=== PATIENT | male | born 1990 | race Caucasian/White ===

== ENCOUNTER 2019-09-12 02:00 | Emergency (ER) | payer SELFPAY ==
[~2019-09-12] VITALS: Ht 172.7 cm; Wt 105.2 kg
[~2019-09-12 02:00] MED LIST: METH4TAB PO; SULF1TAB35 PO
[2019-09-12 02:30] VITALS: BP 110/64
[2019-09-12 02:38] LABS: BASOPHILS % (AUTO) 1 % (0-10); EOSINOPHILS # (AUTO) 0.4 10^3/uL (0.0-0.3); EOSINOPHILS % (AUTO) 6 % (0-10); HEMATOCRIT 42 % (40-54); HEMOGLOBIN 14.8 G/DL (13.3-17.7); LYMPHOCYTES # (AUTO) 2.2 X 10^3 (1.0-4.0); LYMPHOCYTES % (AUTO) 32 % (12-44); MEAN CORPUSCULAR HEMOGLOBIN 32 PG (25-34); MEAN CORPUSCULAR HGB CONC 35 G/DL (32-36); MEAN CORPUSCULAR VOLUME 91 FL (80-99); MEAN PLATELET VOLUME 9.8 FL (7.4-10.4); MONOCYTES # (AUTO) 0.9 X 10^3 (0.0-1.0); MONOCYTES % (AUTO) 13 % (0-12); NEUTROPHILS # (AUTO) 3.2 X 10^3 (1.8-7.8); NEUTROPHILS % (AUTO) 48 % (42-75); PLATELET COUNT 218 10^3/uL (130-400); RED CELL DISTRIBUTION WIDTH 13.2 % (10.0-14.5); WHITE BLOOD COUNT 6.7 10^3/uL (4.3-11.0)
--- NOTE | 2019-09-12 02:42 | ED Cough/URI ---
General Chief Complaint: Cough/Cold/Flu Symptoms Stated Complaint: SOB,FEVER Nursing Triage Note: c/o sore throat, cough, intermittant fever x3 days. Sepsis Screen: No Definite Risk Source: patient History of Present Illness Date Seen by Provider: Sep 12, 2019 Time Seen by Provider: 02:13 Initial Comments PT ARRIVES VIA POV FROM HOME STATES HE HAS BEEN SICK FOR 3 DAYS STARTED OUT WITH SORE THROAT AND FEVER OF 102.3 HAS HAD NON-PRODUCTIVE COUGH AND HAS HAD A HARD TIME BREATHING FOR THE LAST 3 DAYS STATES HE HAS "BEEN HAVING A LITTLE WHEEZING WHEN I DON'T TAKE THE DAYQUIL, HAS ALSO BEEN TAKING NYQUIL HAS NOT TAKEN ANY TYLENOL OR MOTRIN FOR SYMPTOMS PT HAS HAD BRONCHITIS A COUPLE OF TIMES AND HAD PNEUMONIA ONCE, ABOUT 5 YEARS AGO DOES NOT HAVE ANY OTHER RESPIRATORY PROBLEMS PT SMOKED FOR ABOUT 2 YEARS, QUIT 2012 NO KNOWN SICK CONTACTS OR KNOWN EXPOSURE TO COVID-19, NO RECENT TRAVEL. PT WORKS AT [employer] IN [place], [place] Allergies and Home Medications Allergies Coded Allergies: No Known Drug Allergies (Unverified , 07/22/15) Home Medications Azithromycin 500 Mg Tablet, 500 MG PO DAILY Prescribed by: SARAH ROCHA on 09/12/19327 Benzonatate 100 Mg Capsule, 100 MG PO TID Prescribed by: SARAH ROCHA on 09/12/19327 Guaifenesin/Dextromethorphan 1 Each Tbmp.12hr, 1 EACH PO BID Prescribed by: SARAH ROCHA on 09/12/19327 Ondansetron 4 Mg Tab.rapdis, 4 MG PO Q4H Prescribed by: SARAH ROCHA on 09/12/19327 Patient Home Medication List Home Medication List Reviewed: Yes Review of Systems Review of Systems Constitutional: see HPI, fever, malaise EENTM: see HPI, throat pain Respiratory: see HPI, cough, short of breath, wheezing Cardiovascular: no symptoms reported Gastrointestinal: no symptoms reported Genitourinary: no symptoms reported Musculoskeletal: no symptoms reported Skin: no symptoms reported Psychiatric/Neurological: No Symptoms Reported Hematologic/Lymphatic: No Symptoms Reported Immunological/Allergic: no symptoms reported Past Ahcdbmn-Sccojx-Lofgqy Hx Past Med/Social Hx: Reviewed and Corrections made Patient Social History Alcohol Use: Denies Use Recreational Drug Use: No Smoking Status: Former Smoker (QUIT 2012) Type Used: Cigarettes 2nd Hand Smoke Exposure: Yes Recent Foreign Travel: No Contact w/Someone Who Travel: No Recent Infectious Disease Expo: No Recent Hopitalizations: No Physical Abuse: No Sexual Abuse: No Mistreated: No Fear: No Immunizations Up To Date Tetanus Booster (TDap): More than 5yrs Seasonal Allergies Seasonal Allergies: No Past Medical History Surgeries: Yes (BMT'S) Ear Surgery Respiratory: No Cardiac: No Neurological: No HIV/AIDS: No Genitourinary: No Gastrointestinal: No Musculoskeletal: No Endocrine: No HEENT: Yes Chronic Ear Infection Cancer: No Psychosocial: No Integumentary: No Blood Disorders: No Physical Exam Vital Signs - First Documented 09/12/19 02:08 Temp 36.8 Pulse 86 Resp 18 B/P (MAP) 130/76 (94) Pulse Ox 99 O2 Delivery Room Air Capillary Refill : Less Than 3 Seconds Height: 5'8" Weight: 170lbs. oz. 77.838421mc; 35.00 BMI Method:Estimated General Appearance: WD/WN, no apparent distress, other (OCCASIONAL DRY COUGH. ) HEENT: PERRL/EOMI; No photophobia; pharyngeal erythema (VERY SLIGHT ERYTHEMA); No tonsillar exudate; other (TM'S OBSCURED BY CERUMEN) Neck: non-tender, full range of motion, supple, normal inspection; No lymphadenopathy (R), No lymphadenopathy (L) Respiratory: normal breath sounds, no respiratory distress, no accessory muscle use; No rales, No rhonchi, No stridor, No wheezing Cardiovascular: regular rate, rhythm, no murmur Gastrointestinal: non tender, soft Extremities: normal inspection Neurologic/Psychiatric: supervisor dock II-XII nml as tested, no motor/sensory deficits, alert, normal mood/affect, oriented x 3 Skin: normal color, warm/dry Progress/Results/Core Measures Suspected Sepsis Recent Fever Within 48 Hours: Yes Infection Criteria Present: Suspected New Infection New/Unexplained Altered Menta: No Sepsis Screen: No Definite Risk SIRS Temperature: Pulse: 86 Respiratory Rate: 18 Laboratory Tests 09/12/19 02:20: White Blood Count 6.7 Blood Pressure 130 /76 Mean: 94 Laboratory Tests 09/12/19 02:20: Creatinine 1.00, Platelet Count 218, Total Bilirubin 0.4 Results/Orders Lab Results Laboratory Tests Test 09/12/19 02:20 Range/Units White Blood Count 6.7 4.3-11.0 10^3/uL Red Blood Count 4.64 4.35-5.85 10^6/uL Hemoglobin 14.8 13.3-17.7 G/DL Hematocrit 42 40-54 % Mean Corpuscular Volume 91 80-99 FL Mean Corpuscular Hemoglobin 32 25-34 PG Mean Corpuscular Hemoglobin Concent 35 32-36 G/DL Red Cell Distribution Width 13.2 10.0-14.5 % Platelet Count 218 130-400 10^3/uL Mean Platelet Volume 9.8 7.4-10.4 FL Neutrophils (%) (Auto) 48 42-75 % Lymphocytes (%) (Auto) 32 12-44 % Monocytes (%) (Auto) 13 H 0-12 % Eosinophils (%) (Auto) 6 0-10 % Basophils (%) (Auto) 1 0-10 % Neutrophils # (Auto) 3.2 1.8-7.8 X 10^3 Lymphocytes # (Auto) 2.2 1.0-4.0 X 10^3 Monocytes # (Auto) 0.9 0.0-1.0 X 10^3 Eosinophils # (Auto) 0.4 H 0.0-0.3 10^3/uL Basophils # (Auto) 0.0 0.0-0.1 10^3/uL Sodium Level 143 135-145 MMOL/L Potassium Level 3.7 3.6-5.0 MMOL/L Chloride Level 108 H 98-107 MMOL/L Carbon Dioxide Level 23 21-32 MMOL/L Anion Gap 12 5-14 MMOL/L Blood Urea Nitrogen 12 7-18 MG/DL Creatinine 1.00 0.60-1.30 MG/DL Estimat Glomerular Filtration Rate > 60 BUN/Creatinine Ratio 12 Glucose Level 106 H 70-105 MG/DL Calcium Level 9.0 8.5-10.1 MG/DL Corrected Calcium 8.8 8.5-10.1 MG/DL Total Bilirubin 0.4 0.1-1.0 MG/DL Aspartate Amino Transf (AST/SGOT) 34 5-34 U/L Alanine Aminotransferase (ALT/SGPT) 38 0-55 U/L Alkaline Phosphatase 70 40-136 U/L Lactate Dehydrogenase 231 H 125-220 U/L C-Reactive Protein High Sensitivity 2.67 H 0.00-0.50 MG/DL Total Protein 7.1 6.4-8.2 GM/DL Albumin 4.2 3.2-4.5 GM/DL Monoscreen NEGATIVE NEGATIVE Group A Streptococcus Screen NEGATIVE NEGATIVE Micro Results Microbiology 09/12/19 Influenza Types A,B Antigen (STEPH) - Final, Complete My Orders Orders - SARAH ROCHA DO Ed Iv/Invasive Line Start (09/12/19 02:12) Monitor-Rhythm Ecg Trace Only (09/12/19 02:12) Chest 1 View, Ap/Pa Only (09/12/19 02:12) Cbc With Automated Diff (09/12/19 02:12) Comprehensive Metabolic Panel (09/12/19 02:12) Hs C Reactive Protein (09/12/19 02:12) Monotest (09/12/19 02:12) Rapid Strep A Screen (09/12/19 02:12) Influenza A And B Antigens (09/12/19 02:12) LDH (09/12/19 02:12) Coronavirus Sars-Cov-2 So 2018 (09/12/19 02:12) Adenovirus Detection By Pcr (09/12/19 02:12) Parainfluenza Virus 1,2,3 Pcr (09/12/19 02:12) Ondansetron Injection (Zofran Injectio (09/12/19 03:30) Azithromycin Tablet (Zithromax Tablet) (09/12/19 03:30) Rx-Ondansetron Po (Rx-Zofran Po) (09/12/19 03:35) Rx-Ondansetron Po (Rx-Zofran Po) (09/12/19 03:28) Azithromycin Tablet (Zithromax Tablet) (09/12/19 03:20) Medications Given in ED Current Medications Medications Dose Ordered Sig/Ti Route Start Time Stop Time Status Last Admin Dose Admin Azithromycin 500 mg ONCE ONCE PO 09/12/19 03:30 09/12/19 03:46 DC 09/12/19 03:27 500 MG Ondansetron HCl 4 mg ONCE ONCE IVP 09/12/19 03:30 09/12/19 03:31 DC 09/12/19 03:26 4 MG Vital Signs/I&O 09/12/19 09/12/19 09/12/1919/20 02:08 02:08 02:30 03:00 Temp 36.8 Pulse 86 93 102 Resp 18 18 18 B/P (MAP) 130/76 (94) 110/64 (79) 121/67 (85) Pulse Ox 99 99 99 O2 Delivery Room Air Room Air Room Air Room Air 09/12/19 09/12/19 03:30 03:45 Temp 36.7 Pulse 89 84 Resp 16 16 B/P (MAP) 127/80 (96) 122/79 (96) Pulse Ox 100 99 O2 Delivery Room Air Room Air Capillary Refill : Less Than 3 Seconds Blood Pressure Mean: 94 Progress Note : Progress Note PT SEEN IN COVID UNIT. PPE WORN AT ALL TIMES. COVID TESTING DONE THROUGHOUT STAY, PT'S MAIN COMPLAINT WAS HIS SORE THROAT--STATES "I CAN'T BREATHE BECAUSE IT HURTS" --PT IS SHOWING NO SIGNS OF ANY RESPIRATORY DIFFICULTY, NO STRIDOR, NO WHEEZING, RESPIRATIONS EVEN AND UNLABORED AND NORMAL RATE, WITH O2 SATS 97-100% ON ROOM AIR ALL VITALS STABLE NO FEVER DURING STAY 0245--PT NOW ADMITS THAT HE WENT TO [facility] ER 3 DAYS AGO WHEN SYMPTOMS BEGAN AND HE WAS TESTED FOR COVID AT THAT TIME ALSO. DOES NOT KNOW RESULTS OF THAT TEST. STATES "THEY DIDN'T DO ANYTHING FOR HIM" --NO RX'S PT WAS ADVISED ON IMPORTANCE OF SELF QUARANTINE HIMSELF AND ALL FAMILY MEMBERS FOR THE NEXT 2 WEEKS, OR UNTIL CLEARED BY HEALTH DEPT. Departure Impression Primary Impression: Upper respiratory infection Additional Impressions: Sore throat COFD P.U.I. Disposition: 01 HOME, SELF-CARE Condition: Stable Departure-Patient Inst. Referrals: NO,LOCAL PHYSICIAN (PCP/Family) Primary Care Physician Patient Instructions: Coronavirus Disease 2019 (COVID-19) (DC), Cough, Runny Nose, and the Common Cold (DC), Sore Throat, Adult (DC), Viral Upper Respiratory Infection, Adult (DC) Add. Discharge Instructions: LOTS OF CLEAR LIQUIDS--WATER, BROTH, JELLO, GATORADE TYLENOL NEEDED FOR PAIN OR FEVER OVER 101 OVER THE COUNTER CEPACOL LOZENGES OR THROAT SPRAY FOR THROAT PAIN SELF-QUARANTINE YOURSELF AND ALL HOUSEHOLD MEMBERS FOR THE NEXT 2 WEEKS, UNTIL CLEARED BY HEALTH DEPT. FOLLOW UP WITH DR OF CHOICE IN 4-5 DAYS IF NO BETTER All discharge instructions reviewed with patient and/or family. Voiced understanding. Scripts Guaifenesin/Dextromethorphan (Mucinex Dm ER 1,200-60 mg Tab) 1 Each Tbmp.12hr 1 EACH PO BID, #20 EA Prov: SARAH ROCHA DO 09/12/19 Benzonatate (TESSALON PERLES) 100 Mg Capsule 100 MG PO TID, #30 CAP Prov: SARAH ROCHA DO 09/12/19 Ondansetron (Ondansetron Odt) 4 Mg Tab.rapdis 4 MG PO Q4H for Nausea/Vomiting, #10 TAB Prov: SARAH ROCHA DO 09/12/19 Azithromycin (Zithromax) 500 Mg Tablet 500 MG PO DAILY for 5 Days, #5 TAB Prov: SARAH ROCHA DO 09/12/19 Work/School Note: Local Medical Staff Listing, Work Release Form Date Seen in the Emergency Department: Sep 12, 2019 Return to Work: September 26, 2019 SARAH ROCHA DO Sep 12, 2019 02:42
[2019-09-12 02:49] LABS: ALBUMIN 4.2 GM/DL (3.2-4.5); CHLORIDE 108 MMOL/L (98-107); POTASSIUM 3.7 MMOL/L (3.6-5.0); SODIUM 143 MMOL/L (135-145)
[2019-09-12 02:51] LABS: GLUCOSE 106 MG/DL (70-105)
[2019-09-12 02:52] LABS: TOTAL PROTEIN 7.1 GM/DL (6.4-8.2)
[2019-09-12 02:53] LABS: BILIRUBIN,TOTAL 0.4 MG/DL (0.1-1.0); CARBON DIOXIDE 23 MMOL/L (21-32)
[2019-09-12 02:55] LABS: ALKALINE PHOSPHATASE 70 U/L (40-136); GFR ESTIMATED > 60
[2019-09-12 02:56] LABS: BUN/CREATININE RATIO 12
[2019-09-12 02:58] LABS: ALANINE AMINOTRANSFERASE 38 U/L (0-55)
[2019-09-12 03:00] VITALS: BP 121/67
[2019-09-12] MEDS ORDERED: AZITHROMYCIN 250 MG TAB (ZITHROMAX) PO ONE ×2 (03:20→03:30)
[2019-09-12] MEDS ORDERED: RX-ONDANSETRON 4 MG ODT (ZOFRAN) PPK #4 ONE (03:28)
[2019-09-12] MEDS ORDERED: ONDA4TAB11 PO (03:28)
[2019-09-12] MEDS ORDERED: BENZ100C18 PO (03:28)
[2019-09-12] MEDS ORDERED: AZIT500T PO (03:28)
[2019-09-12] MEDS ORDERED: GUAI1TBM19 PO (03:28)
[2019-09-12 03:30] VITALS: BP 127/80
[2019-09-12] MEDS ORDERED: ONDANSETRON 4 MG/2 ML (SDV) Z0FRAN IVP ONE (03:30)
[2019-09-12] MEDS ORDERED: RX-ONDANSETRON 4 MG ODT (ZOFRAN) PPK #4 PO STA (03:35)
[2019-09-12 03:45] VITALS: BP 122/79
--- NOTE | 2019-09-12 08:19 | Diagnostic Imaging Report ---
INDICATION: Shortness of air. Time of exam 2:38 AM No prior studies are available for comparison. The heart size is normal. The pulmonary vascularity is unremarkable. The lungs are clear. No infiltrate, effusion or pneumothorax is detected. Impression: No acute cardiopulmonary process is detected. Dictated by: Dictated on workstation # [id number]
[2019-09-13 16:20] LABS: PARAINFLU 1 PCR Not Detected (Not Detected); PARAINFLU 2 PCR Not Detected (Not Detected)
== END 2019-09-12 03:46 | disposition home or self-care (01) ==
LOC: EDUNIT# 02:00 → ER 02:01
DX: J06.9 Acute upper respiratory infection, unspecified (principal)
CPT/HCPCS: 36415; 71045; 80053; 83615; 85025; 86141; 86308; 87430; 87631; 87635; 87798; 87804

== ENCOUNTER 2021-02-22 13:29 | Emergency (ER) | payer SELFPAY ==
[~2021-02-22] VITALS: Ht 175.2 cm; Wt 93.7 kg
[~2021-02-22 13:29] MED LIST changes: +AZIT500T PO; +BENZ100C18 PO; +GUAI1TBM19 PO; +ONDA4TAB11 PO; -SULF1TAB35 PO; +SULF1TAB38 PO
[2021-02-22] MEDS ORDERED: PROCHLORPERAZINE 10 MG/2ML INJ (COMPAZINE) IV ONE (14:00)
[2021-02-22] MEDS ORDERED: diphenhydrAMINE 50 MG/ML INJ (BENADRYL) INJ ONE (14:00)
[2021-02-22] MEDS ORDERED: LACTATED RINGERS 1,000 ML IV SCH (14:00)
[2021-02-22] MEDS ORDERED: KETOROLAC 30 MG/ML VIAL IVP ONE (14:00)
--- NOTE | 2021-02-22 14:03 | Diagnostic Imaging Report ---
PROCEDURE: CT head without contrast. TECHNIQUE: Multiple contiguous axial images were obtained through the brain without the use of intravenous contrast. Auto Exposure Controls were utilized during the CT exam to meet ALARA standards for radiation dose reduction. INDICATION: Worsening headache x5 days. No known injuries. EXAMINATION: CT brain without contrast 02/22/2021. COMPARISON: 07/22/2015 FINDINGS: Multiple axial images of the brain without contrast. There is no evidence for acute hemorrhage or infarct. There is no mass, mass effect, midline shift or hydrocephalus. The paranasal sinuses and mastoid air cells demonstrate no acute abnormality. IMPRESSION: No acute intracranial process. Dictated by: Dictated on workstation # [id number]
--- NOTE | 2021-02-22 14:11 | ED Headache ---
General Chief Complaint: Head/Cervical Problems Stated Complaint: HEADACHE Source: patient Exam Limitations: no limitations History of Present Illness Date Seen by Provider: Feb 22, 2021 Time Seen by Provider: 13:39 Initial Comments 30-year-old male with no significant past medical history coming in due to a headache. Headache came on slowly on Friday which was roughly 5 days ago. It is more in the quaker region, is throbbing, now severe. It was slow in onset, and not thunderclap. Denies any fever or neck stiffness. No weakness, numbness, or any other concerns with it. He gets maybe 2 headaches a year, but does not really go to the doctor and has never seen anyone for headaches. This 1 definitely feels worse than usual. Has tried Tylenol and ibuprofen which took the edge off yesterday but never really fully gotten better. Has some photosensitivity and potentially blurry vision today but no other concerns. Denies any other infectious symptoms including cough, fever, shortness of breath, nausea, vomiting, diarrhea, rash, or any other concerns. Allergies and Home Medications Allergies Coded Allergies: No Known Drug Allergies (Unverified , 07/22/15) Patient Home Medication List Home Medication List Reviewed: Yes Azithromycin (Zithromax) 500 Mg Tablet, 500 MG PO DAILY Prescribed by: SARAH ROCHA on 09/12/19327 Benzonatate (Tessalon Perles) 100 Mg Capsule, 100 MG PO TID Prescribed by: SARAH ROCHA on 09/12/19327 Guaifenesin/Dextromethorphan (Mucinex Dm ER 1,200-60 mg Tab) 1 Each Tbmp.12hr, 1 EACH PO BID Prescribed by: SARAH ROCHA on 09/12/19327 Ondansetron (Ondansetron Odt) 4 Mg Tab.rapdis, 4 MG PO Q4H Prescribed by: SARAH ROCHA on 09/12/19327 Review of Systems Review of Systems Constitutional: No chills, No fever Eyes: Blurred Vision Ears, Nose, Mouth, Throat: denies throat pain Respiratory: No cough, No short of breath Cardiovascular: No chest pain, No palpitations Gastrointestinal: No abdominal pain, No constipation, No diarrhea, No nausea, No vomiting Genitourinary: No dysuria Musculoskeletal: No back pain Skin: No rash Psychiatric/Neurological: No Symptoms Reported All Other Systems Reviewed Negative Unless Noted: Yes Past Kgwroun-Onbttf-Pnoryj Hx Patient Social History Tobacco Use?: No Immunizations Up To Date Tetanus Booster (TDap): More than 5yrs Seasonal Allergies Seasonal Allergies: No Past Medical History Surgeries: Yes (BMT'S) Ear Surgery Respiratory: No Cardiac: No Neurological: No HIV/AIDS: No Genitourinary: No Gastrointestinal: No Musculoskeletal: No Endocrine: No HEENT: Yes Chronic Ear Infection Cancer: No Psychosocial: No Integumentary: No Blood Disorders: No Physical Exam Vital Signs Vital Signs - First Documented 02/22/21 13:35 Temp 36.4 Pulse 86 Resp 20 B/P (MAP) 140/73 (95) Pulse Ox 98 O2 Delivery Room Air Capillary Refill : Height, Weight, BMI Height: 5'8" Weight: 170lbs. oz. 77.899222fc; 35.00 BMI Method:Estimated General Appearance: WD/WN, no apparent distress HEENT: PERRL/EOMI, normal ENT inspection, TMs normal, pharynx normal Neck: non-tender, full range of motion, supple, normal inspection, other (No meningismus, negative shake test) Cardiovascular: regular rate, rhythm, no edema, no murmur Respiratory: chest non-tender, lungs clear, normal breath sounds, no respiratory distress, no accessory muscle use Gastrointestinal: normal bowel sounds, non tender, soft; No distended, No guarding, No rebound Back: normal inspection, no CVA tenderness Extremities: normal range of motion, non-tender, normal inspection, no pedal edema, no calf tenderness, normal capillary refill Psychiatric: alert, oriented x 3, depressed affect Crainal Nerves: normal hearing, normal speech, PERRL Coordination/Gait: normal finger to nose, normal gait, negative Romberg's sign Motor/Sensory: no motor deficit, no sensory deficit, no pronator drift Skin: normal color, warm/dry Lymphatic: no adenopathy Progress/Results/Core Measures Results/Orders My Orders Orders - DOLORES MONREAL MD Ct Head Wo (02/22/21 13:47) Prochlorperazine Injection (Compazine In (02/22/21 14:00) Diphenhydramine Injection (Benadryl Inje (02/22/21 14:00) Lactated Ringers (Lr 1000 Ml Iv Solution (02/22/21 14:00) Ketorolac Injection (Toradol Injection) (02/22/21 14:00) Medications Given in ED Current Medications Medications Dose Ordered Sig/Ti Route Start Time Stop Time Status Last Admin Dose Admin Diphenhydramine HCl 25 mg ONCE ONCE INJ 02/22/21 14:00 02/22/21 14:01 DC 02/22/21 14:02 25 MG Ketorolac Tromethamine 15 mg ONCE ONCE IVP 02/22/21 14:00 02/22/21 14:01 DC 02/22/21 14:02 15 MG Prochlorperazine Edisylate 10 mg ONCE ONCE IV 02/22/21 14:00 02/22/21 14:01 DC 02/22/21 14:02 10 MG Vital Signs/I&O 02/22/21 13:35 Temp 36.4 Pulse 86 Resp 20 B/P (MAP) 140/73 (95) Pulse Ox 98 O2 Delivery Room Air Progress Progress Note : Progress Note 30-year-old male with above history coming in due to headache. ABCs were intact and vitals were stable on presentation. Specifically, he is afebrile, has no meningismus, is well-appearing otherwise and I have very low concern for meningitis. Do not believe a lumbar puncture would be helpful for him. The headache was not acute in onset, and came on slowly and does not fit clinically with a subarachnoid hemorrhage. He does not have any focal neurologic signs that would point to a lesion in his brain, however it is unusual for him to get a headache this bad. CT had ordered and on my interpretation without any bleeding or large mass with mass-effect. An IV was placed and he was given a bolus of IV fluids as well as a headache cocktail. He improved and on reassessment continues to look well. I believe this is more likely a benign headache. He was then discharged home in stable condition with strict return precautions. Diagnostic Imaging Diagonstic Imaging: CT Plain Films/CT/US/NM/MRI: head Comments [facility], [place] NAME: MARJORIE MADRID [facility] REC#: [id number] PT STATUS: REG ER : 1990 PHYSICIAN: DOLORES MONREAL MD ADMIT DATE: 02/22/21/ER FS Signed Date of Exam:02/22/21 CT HEAD WO PROCEDURE: CT head without contrast. TECHNIQUE: Multiple contiguous axial images were obtained through the brain without the use of intravenous contrast. Auto Exposure Controls were utilized during the CT exam to meet ALARA standards for radiation dose reduction. INDICATION: Worsening headache x5 days. No known injuries. EXAMINATION: CT brain without contrast 02/22/2021. COMPARISON: 07/22/2015 FINDINGS: Multiple axial images of the brain without contrast. There is no evidence for acute hemorrhage or infarct. There is no mass, mass effect, midline shift or hydrocephalus. The paranasal sinuses and mastoid air cells demonstrate no acute abnormality. IMPRESSION: No acute intracranial process. Dictated by: Dictated on workstation # [id number] Dict: 02/22/21 1359 Trans: 02/22/21 1407 [id number] Interpreted by: LISANDRO COMER MD Electronically signed by: LISANDRO COMER MD 02/22/21 1407 Departure Impression Primary Impression: Headache Qualified Codes: R51.9 - Headache, unspecified Disposition: 01 HOME, SELF-CARE Condition: Stable Departure-Patient Inst. Decision time for Depature: 14:51 Referrals: NO,LOCAL PHYSICIAN (PCP/Family) Primary Care Physician Patient Instructions: Headache, Adult (DC) Add. Discharge Instructions: You were seen in the emergency department for headache. We did a scan of your head which does not show anything bad and looked normal. Patient to drink plenty of fluids. You can take 600 mg of ibuprofen and 1000 g of Tylenol if this comes back. If you develop any cough, nausea, vomiting, or any other concerns then this could actually be infectious related and we would recommend getting testing for viruses such as Covid. However you said you do not have any of the symptoms at this time. This likely is just a regular old headache. If you have any fever or any other concerns then please come back to the ER All discharge instructions reviewed with patient and/or family. Voiced unders tanding. DOLORES MONREAL MD Feb 22, 2021 14:11
[2021-02-22 14:58] VITALS: BP 138/51
== END 2021-02-22 14:58 | disposition home or self-care (01) ==
LOC: EDUNIT# 13:29 → ER FS 13:31
DX: R51.9 Headache, unspecified (principal)
CPT/HCPCS: 70450; 96374; 96375

== ENCOUNTER 2021-10-14 20:39 | Emergency (ER) | payer SELFPAY ==
[~2021-10-14] VITALS: Ht 90.7 cm; Wt 175.0 kg
[2021-10-14 20:48] VITALS: BP 119/68
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
[2021-10-14] MEDS ORDERED: SMTR50T PO (21:47)
== END 2021-10-14 21:54 | disposition home or self-care (01) ==
LOC: EDUNIT# 20:39 → ER 20:40
DX: G44.019 Episodic cluster headache, not intractable (principal)
CPT/HCPCS: 99281

== ENCOUNTER 2021-11-07 21:57 | Emergency (ER) | payer SELFPAY ==
[~2021-11-07] VITALS: Ht 175 cm; Wt 97.5 kg
[~2021-11-07 21:57] MED LIST changes: +SMTR50T PO
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
[2021-11-07] MEDS ORDERED: BENZ100C18 PO (23:40)
[2021-11-07] MEDS ORDERED: D-ME473S11 PO (23:40)
[2021-11-07] MEDS ORDERED: RT-ALBUINH IH (23:40)
[2021-11-07] MEDS ORDERED: METH4TAB PO (23:40)
[2021-11-07] MEDS ORDERED: RX-ALBUTEROL INHALER 8.5 GM HFA (PROAIR) IH STA (23:41)
[2021-11-07] MEDS ORDERED: BENZONATATE 100 MG (TESSALON) CAPSULE PO SCH (23:45)
[2021-11-07 23:50] VITALS: BP 111/77
--- NOTE | 2021-11-08 06:02 | Diagnostic Imaging Report ---
Indication: Cough Portable chest 11:09 PM Heart size and pulmonary vascularity are normal. Lungs are clear. There are no effusions or pneumothoraces. IMPRESSION: No acute abnormalities in the chest Dictated by: Dictated on workstation # [id number]
== END 2021-11-07 23:51 | disposition home or self-care (01) ==
LOC: EDUNIT# 21:57 → ER 22:00
DX: Z20.822 Contact with and (suspected) exposure to COVID-19 (principal); Z87.891 Personal history of nicotine dependence; Z28.310 Unvaccinated for COVID-19
CPT/HCPCS: 71045; 87636

== ENCOUNTER 2022-12-08 13:24 | Emergency (ER) | payer SELFPAY ==
[~2022-12-08] VITALS: Ht 172 cm; Wt 86.0 kg
[~2022-12-08 13:24] MED LIST changes: +ALBU8.5H6 IH; +PROM473S15 PO
[2022-12-08 13:31] VITALS: BP 126/76
[2022-12-08] MEDS ORDERED: NS IV 1000 ML 1,000 ML IV STA (13:35)
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
[2022-12-08] MEDS ORDERED: KETOROLAC 30 MG/ML VIAL IVP ONE (13:45)
[2022-12-08] MEDS ORDERED: diphenhydrAMINE 50 MG/ML INJ (BENADRYL) IVP ONE (13:45)
[2022-12-08] MEDS ORDERED: PROCHLORPERAZINE 10 MG/2ML INJ (COMPAZINE) IV ONE (13:45)
--- NOTE | 2022-12-08 14:32 | Diagnostic Imaging Report ---
PROCEDURE: CT head without contrast. TECHNIQUE: Multiple contiguous axial images were obtained through the brain without the use of intravenous contrast. Auto Exposure Controls were utilized during the CT exam to meet ALARA standards for radiation dose reduction. INDICATION: Headache for 4 days. COMPARISON: CT of the head 02/22/2021. No acute intracranial hemorrhage. The mays-white matter differentiation is preserved. The ventricles and cortical sulci are normal. No midline shift or mass effect. The subarachnoid cisterns are maintained. The sella is normal. The paranasal sinuses and mastoids are clear. Skull is intact. IMPRESSION: No acute intracranial hemorrhage. No large vascular territory aquino-white loss. No intracranial mass, midline shift, or hydrocephalus. Dictated by: Dictated on workstation # [id number]
== END 2022-12-08 14:28 | disposition home or self-care (01) ==
LOC: EDUNIT# 13:24 → ER 13:25
DX: R51.9 Headache, unspecified (principal)
CPT/HCPCS: 70450; 99281

== ENCOUNTER 2023-03-18 22:21 | Emergency (ER) | payer SELFPAY ==
[~2023-03-18] VITALS: Ht 175.3 cm; Wt 95.3 kg
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
[2023-03-18] MEDS ORDERED: KETOROLAC INJ 60 MG/2 ML VIAL IM ONE (23:15)
[2023-03-18 23:21] VITALS: BP 118/105
== END 2023-03-18 23:23 | disposition home or self-care (01) ==
LOC: EDUNIT# 22:21 → ER 22:23
DX: R07.89 Other chest pain (principal)
CPT/HCPCS: 99281